=== PATIENT | female | born 1960 | race African-American/Black ===

== ENCOUNTER 2017-01-22 01:04 | Emergency (ER) | payer MEDICARE, MEDICAID ==
[~2017-01-22] VITALS: Ht 170.2 cm; Wt 65.8 kg
[2017-01-22] MEDS ORDERED: NKM (01:16)
[2017-01-22 01:33] VITALS: BP 151/76
[2017-01-22] MEDS ORDERED: IBUPROFEN600 MG ORAL (02:09)
--- NOTE | 2017-01-22 02:10 | Emergency Room Report ---
History of Present Illness General Chief Complaint: Pain Source: Patient Present Illness HPI This is a 56-year-old female with no past medical history. She presents with chief complaint of right shoulder pain. Onset for last couple months. Worse the last few days. Now can lift it up as a 90. Worse with movement. No trauma. No fever or chills. Denies any other complaint. No repetitive movement that she can think of. Pain is 7/10. Allergies: Coded Allergies: No Known Allergies (Unverified , 01/22/17) Patient History Past Medical History: see triage record, old chart reviewed Past Surgical History: other Pertinent Family History: none Social History: Reports: alcohol use Now: No Immunizations: other Reviewed Nursing Documentation: PMH: Agreed, PSxH: Agreed Nursing Documentation-PMH Past Medical History: No Stated History Review of Systems Eye: Denies: blurred vision, eye pain ENT: Denies: ear pain, nose congestion, throat swelling Respiratory: Denies: cough, shortness of breath Cardiovascular: Denies: chest pain, palpitations Gastrointestinal: Denies: abdominal pain, diarrhea, nausea, vomiting Musculoskeletal: Reports: joint pain, Denies: back pain Skin: Denies: rash Neurological: Denies: headache, numbness Endocrine: Denies: increased thirst, increased urine Hematologic/Lymphatic: Denies: easy bruising All Other Systems: negative except mentioned in HPI Physical Exam Vital Signs Date Time Temp Pulse Resp B/P Pulse Ox O2 Delivery O2 Flow Rate FiO2 01/22/17 01:09 98.2 78 16 151/76 99 Room Air vitals normal except for high blood pressure Sp02 EP Interpretation: reviewed, normal General Appearance: well appearing, no apparent distress, alert Head: normocephalic, atraumatic Eyes: bilateral eye EOMI, bilateral eye PERRL ENT: hearing grossly normal, normal pharynx Neck: full range of motion, supple, no meningismus Respiratory: chest non-tender, lungs clear, normal breath sounds Cardiovascular #1: regular rate, rhythm, no murmur Gastrointestinal: normal bowel sounds, non tender, no mass, no organomegaly, no bruit, non-distended Musculoskeletal: back normal, gait/station normal, other - Right shoulder: Decreased rof motion especially with abduction. No swelling or edema. Psychiatric: mood/affect normal Skin: warm/dry Medical Decision Making Diagnostic Impression: Primary Impression: Sprain of shoulder, right Qualified Codes: S43.401A - Unspecified sprain of right shoulder joint, initial encounter ER Course Patient with a shoulder sprain. No evidence of septic joint or fracture dislocation. We'll discharge home. Other X-Ray Diagnostic Results Other X-Ray Diagnostic Results : X-Ray Ordered: Right shoulder x-rays Date: Jan 22, 2017 Time: 02:09 EP Interpretation: Yes Findings: no fractures, no dislocation, no soft tissue swelling Number of Views: 3 Last Vital Signs Date Time Temp Pulse Resp B/P Pulse Ox O2 Delivery O2 Flow Rate FiO2 01/22/17 01:33 98.2 78 16 151/76 99 Room Air Status: improved Disposition: HOME, SELF-CARE Condition: Stable Scripts Ibuprofen* (MOTRIN*) 600 Mg Tablet 600 MG ORAL THREE TIMES A DAY, #30 TAB 0 Refills Prov: MARV SAWYER M.D. 01/22/17 Referrals: [facility],REFERRING (PCP) Additional Instructions: Followup with your in 7 days. Return if worse. MARV SAWYER M.D. Jan 22, 2017 02:10
[2017-01-22 02:20] VITALS: BP 151/76
--- NOTE | 2017-01-22 13:14 | Diagnostic Imaging Report ---
Indication: PAIN Technique: 3 views of the right shoulder Comparison: none Findings: No acute fractures. No dislocations. There are early calcific tendinosis changes of the right shoulder Impression:No acute process
== END 2017-01-22 02:20 | disposition home or self-care (01) ==
LOC: EMR 01:25
DX: S43.401A Unspecified sprain of right shoulder joint, initial encounter (principal); X58.XXXA Exposure to other specified factors, initial encounter; Y92.9 Unspecified place or not applicable
CPT/HCPCS: 99283